=== PATIENT | female | born 1970 | race Two or more races ===

== ENCOUNTER 2024-10-08 10:44 | Emergency (ER) | payer MEDICAID, OTHER ==
[~2024-10-08] VITALS: Ht 165.1 cm; Wt 56.5 kg
[2024-10-08 11:39] VITALS: BP 138/84; PULSE 105; RESP 18; TEMP 98.3; O2SAT 97
--- NOTE | 2024-10-08 12:59 | DVH ---
CLINICAL INDICATION: trauma TECHNIQUE: 3 radiographic views of the right hand were obtained. Comparison: None FINDINGS/IMPRESSION: There is no evidence of acute fracture or dislocation. The visualized joint space is well maintained. The alignment is anatomical. There is no radiopaque foreign body.
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
[2024-10-08] MEDS ORDERED: NAP500T PO (13:33)
== END 2024-10-08 13:38 | disposition home or self-care (01) ==
LOC: ER 10:44
DX: S66.411A Strain of intrinsic muscle, fascia and tendon of right thumb at wrist and hand level, initial encounter (principal); S20.211A Contusion of right front wall of thorax, initial encounter; X58.XXXA Exposure to other specified factors, initial encounter; Y93.89 Activity, other specified; Y92.89 Other specified places as the place of occurrence of the external cause; Y99.8 Other external cause status
CPT/HCPCS: 73130

== ENCOUNTER 2024-10-18 12:05 | Emergency (ER) | payer MEDICAID ==
[~2024-10-18] VITALS: Ht 165.1 cm; Wt 55.1 kg
[~2024-10-18 12:05] MED LIST: NAP500T PO
[2024-10-18 12:53] VITALS: BP 108/64; PULSE 86; RESP 20; TEMP 98.3; O2SAT 96
[2024-10-18] MEDS ORDERED: NAPR-746 PO (13:12)
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
== END 2024-10-18 13:25 | disposition home or self-care (01) ==
LOC: ER 12:13
DX: M77.9 Enthesopathy, unspecified (principal); Z79.899 Other long term (current) drug therapy

== ENCOUNTER 2025-01-24 11:18 | Emergency (ER) | payer MEDICAID ==
[~2025-01-24] VITALS: Ht 165.1 cm; Wt 49.3 kg
[~2025-01-24 11:18] MED LIST changes: +NAPR-746 PO
[2025-01-24 11:30] VITALS: BP 125/84; PULSE 94; RESP 18; TEMP 99.1; O2SAT 96
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
[2025-01-24] MEDS ORDERED: METH4PAK PO (11:40)
[2025-01-24] MEDS ORDERED: LIDO2SOL26 MT (11:40)
== END 2025-01-24 12:14 | disposition home or self-care (01) ==
LOC: ER 11:18
DX: J39.2 Other diseases of pharynx (principal); T45.0X5A Adverse effect of antiallergic and antiemetic drugs, initial encounter; E03.9 Hypothyroidism, unspecified; Z79.899 Other long term (current) drug therapy